=== PATIENT | male | born 1990 | race African-American/Black ===

== ENCOUNTER 2018-12-26 07:15 | Emergency (ER) | payer BC ==
[2018-12-26 07:24] VITALS: BP 133/98
--- NOTE | 2018-12-26 07:44 | Emergency Department Report ---
ED Back Pain/Injury HPI - General Chief Complaint: Back Pain/Injury Stated Complaint: BACK PAIN Time Seen by Provider: 12/26/18 07:27 Source: patient Limitations: No Limitations - History of Present Illness Initial Comments: -year-old male presents to the ED complaining right-sided lower back pain for the past days. Patient states he was moving furniture over the weekend and th inks he has sprained his lower back also. Patient also states that he got worse when he tipped and stepped wrong while trying to sit on a stool. He denies dysuria, seizures, chills, nausea vomiting or any other symptoms. MD Complaint: back pain, back injury -: Gradual Similar Symptoms Previously: No Place: home Radiation: none Severity: mild Severity scale (0 -10): 4 Worsens With: movement Associated Symptoms: denies: confusion, numbness, difficulty walking, headaches - Related Data Previous Rx's Medication Instructions Recorded Last Taken Type Cyclobenzaprine [Flexeril] 10 mg PO QHS PRN #20 tablet 12/26/18 Unknown Rx Ibuprofen [Motrin] 800 mg PO Q8HR #30 tablet 12/26/18 Unknown Rx Allergies Allergy/AdvReac Type Severity Reaction Status Date / Time No Known Allergies Allergy Unverified 12/26/18 07:17 ED Review of Systems ROS: Stated complaint: BACK PAIN Other details as noted in HPI Comment: All other systems reviewed and negative ED Back Pain Physical Exam - Exam General: Vital signs noted. No distress. Alert and acting appropriately. Back/Abdomen: No Abdominal Tenderness, No Perithoracic Tenderness, No Perilumbar Tenderness, No Sacroiliac Tenderness, No Flank Tenderness, No Straight Leg Raise Pain Neuro: Yes Normal Sensation, Yes Normal DTR's, Yes Normal Gait, No Motor Weakne ss ED Course Vital Signs 12/26/18 07:17 Temperature 98.5 F Pulse Rate 119 H Respiratory 16 Rate Blood Pressure 133/98 O2 Sat by Pulse 97 Oximetry ED Medical Decision Making - Medical Decision Making 28-year-old male presents with muscle strain of the lower back muscle. Vital signs are normal patient is in no acute distress Discussed with patient follow-up with primary care physician. Discussed the patient and take medications as prescribed. Patient has no neurological deficit. Patient is alert and oriented 3 and understands all instructions given. Discussed drowsiness effect of Flexeril makes her drowsy and not to operate machinery while taking flexeril Critical care attestation.: If time is entered above; I have spent that time in minutes in the direct care of this critically ill patient, excluding procedure time. ED Disposition Clinical Impression: Strain of muscle, fascia and tendon of lower back, initial encounter Disposition: TO HOME OR SELFCARE Is pt being admited?: No Does the pt Need Aspirin: No Condition: Stable Instructions: Low Back Strain (ED), Musculoskeletal Pain (ED) Additional Instructions: Make sure to follow up with the primary care physician as discussed. Take all your medications as you've been prescribed. If you have any worsening symptoms or develop new symptoms please return to ED immediately. Prescriptions: Cyclobenzaprine [Flexeril] 10 mg PO QHS PRN #20 tablet PRN Reason: Muscle Spasm Ibuprofen [Motrin] 800 mg PO Q8HR #30 tablet Referrals: [facility] [Provider Group] - 3-5 Days Forms: Work/School Release Form Time of Disposition: 07:46
== END 2018-12-26 08:04 | disposition home or self-care (01) ==
LOC: ED 07:15
DX: S39.012A Strain of muscle, fascia and tendon of lower back, initial encounter (principal); W18.40XA Slipping, tripping and stumbling without falling, unspecified, initial encounter; Y93.89 Activity, other specified; Y92.009 Unspecified place in unspecified non-institutional (private) residence as the place of occurrence of the external cause; Y99.8 Other external cause status